=== PATIENT | male | born 1990 | race Caucasian/White ===

== ENCOUNTER 2024-01-06 08:47 | Outpatient (OUT) | payer OTHER, SELFPAY ==
[2024-01-06 09:25] LABS: Basophils Absolute Auto 0.2 10^3/uL (0.0-0.1); Basophils Percent Auto 1.8 % (0.2-2.0); Eosinophils Absolute Auto 0.5 10^3/uL (0.0-0.7); Eosinophils Percent Auto 5.4 % (0.9-7.0); Hematocrit 50.5 % (42.0-54.0); Hemoglobin 17.7 g/dL (14.0-18.0); Immature Granulocytes Abs Auto 0.04 10^3/uL (0.00-0.03); Immature Granulocytes Pct Auto 0.4 % (0.0-0.5); Lymphocytes Absolute Auto 2.1 10^3/uL (1.2-3.8); Lymphocytes Percent Auto 22.1 % (20.5-60.0); Mean Corpuscular Hemoglobin 28.1 pg (25.9-34.0); Mean Corpuscular Volume 80.3 fL (80.0-94.0); Mean Platelet Volume 8.6 fL (9.5-13.5); Monocytes Absolute Auto 0.5 10^3/uL (0.3-0.8); Monocytes Percent Auto 5.8 % (1.7-12.0); Neutrophils Percent Auto 64.5 % (43.0-75.0); Platelet Count 253 10^3/uL (150-450); Red Blood Count 6.29 10^6/uL (4.70-6.10); Red Cell Distribution Width 12.9 % (11.0-15.0); White Blood Count 9.3 10^3/uL (4.0-11.0)
[2024-01-06 10:07] LABS: Microalbum Creatinine Ratio Ur 14.6 mg/g (0.0-29.9); Microalbumin Urine Random <1.3 mg/dL (<=30.0)
[2024-01-06 11:20] LABS: Alanine Aminotransferase 43 U/L (16-63); Albumin Globulin Ratio 1.2; Albumin Level 4.2 g/dL (3.4-5.0); Alkaline Phosphatase 111 U/L (46-116); Anion Gap 14.2; Aspartate Amino Transferase 18 U/L (15-37); BUN Creatinine Ratio 14.6; Bilirubin Total 0.6 mg/dL (0.2-1.0); Calcium 9.3 mg/dL (8.5-10.1); Carbon Dioxide 27.9 mmol/L (21.0-32.0); Chloride 97 mmol/L (98-107); Chol HDL Ratio 7.8; Cholesterol 225 mg/dL (<=200); Estimated GFR (African America >60 (>=60); Estimated GFR (Non-African Ame >60 (>=60); Globulin 3.5 g/dL; Glucose 362 mg/dL (74-106); HDL Cholesterol 29 mg/dL (40-60); Potassium 4.1 mmol/L (3.5-5.1); Sodium 135 mmol/L (136-145); TSH W/ REFLEX FT4 2.932 uIU/mL (0.358-3.740); Total Protein 7.7 g/dL (6.4-8.2); Triglycerides 1183 mg/dL (<=150); VLDL CHOLESTEROL 236.6 mg/dL
[2024-01-06 11:23] LABS: Estimated Average Glucose 252 mg/dL; Glycohemoglobin A1C 10.4 % (4.5-6.2)
[2024-01-06 13:17] LABS: LDL Cholesterol Direct 72 mg/dL
[2024-01-07 06:09] LABS: Insulin 6.5 uIU/mL (2.6-24.9)
[2024-01-08 19:08] LABS: Testosterone 225 ng/dL (264-916)
== END 2024-01-06 08:48 | disposition home or self-care (01) ==
PROVIDERS: PCP Internal Medicine; Visit Provider Internal Medicine
DX: N52.8 Other male erectile dysfunction (principal); Z87.19 Personal history of other diseases of the digestive system; E08.9 Diabetes mellitus due to underlying condition without complications; Z79.4 Long term (current) use of insulin; E78.5 Hyperlipidemia, unspecified; F33.2 Major depressive disorder, recurrent severe without psychotic features
CPT/HCPCS: 36415; 80053; 80061; 82043; 82570; 83036; 83525; 83690; 83721; 84402; 84403; 84443; 85025

== ENCOUNTER 2024-03-19 05:36 | Emergency (ER) | payer SELFPAY ==
[2024-03-19 05:48] VITALS: BP 128/92; PULSE 104; TEMP 36.6; O2SAT 99; BMI 25.1
--- NOTE | 2024-03-19 06:09 | ED_ITS ---
HPI - Eye Problem General Chief complaint: Eye Problems Stated complaint: EYE Time Seen by Provider: 03/19/24 05:47 History of Present Illness HPI Narrative: 33-year-old male presents to the emergency department for left eye irritation. It started on March 17, 2 days ago. He gives no history of foreign body or foreign object or chemicals going into his eye. It is irritated in the left eye only and light seems to make it worse. No symptoms in the right eye. 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 Symptoms are continuous. He does not have a foreign body sensation. Related Data Allergies Allergy/AdvReac Type Severity Reaction Status Date / Time No Known Drug Allergies Allergy Verified 03/19/24 05:48 Review of Systems ROS Narrative A ten point review of systems is negative except as noted above. Exam Narrative Exam Narrative: Nurses note and vital signs reviewed and patient is not hypoxic. General: The patient appears well and in no apparent distress. Patient is resting comfortably on cart. She is wearing dark sunglasses. Skin: Warm, dry, no pallor noted. There is no rash noted. Head: Normocephalic, atraumatic Eye: Right conjunctiva appears normal. The left is injected. Lid eversion shows no foreign bodies and staining shows no corneal abrasion or foreign body. Extraocular movements are intact. Ears, Nose, Mouth, and Throat: oral mucosa is moist. Nares patent. Cardiovascular: Regular Rate and Rhythm Respiratory: Patient is in no distress, no accessory muscle use, lungs are clear to auscultation, no wheezing, rales or rhonchi Back: non-tender GI: Soft and nontender Musculoskeletal: No joint swelling Neurological: Awake and alert Psychiatric: Cooperative Constitutional Vital Signs, click to edit/add: Last Vital Signs Temp 97.9 F 03/19/24 05:48 Pulse 104 H 03/19/24 05:48 Resp 18 03/19/24 05:48 BP 128/92 H 03/19/24 05:48 Pulse Ox 99 03/19/24 05:48 O2 Del Method Room Air 03/19/24 05:48 Course Vital Signs Vital signs: Vital Signs Temperature 97.9 F 03/19/24 05:48 Pulse Rate 104 H 03/19/24 05:48 Respiratory Rate 18 03/19/24 05:48 Blood Pressure 128/92 H 03/19/24 05:48 Pulse Oximetry 99 03/19/24 05:48 Oxygen Delivery Method Room Air 03/19/24 05:48 Temperature 97.9 F 03/19/24 05:48 Pulse Rate 104 H 03/19/24 05:48 Respiratory Rate 18 03/19/24 05:48 Blood Pressure 128/92 H 03/19/24 05:48 Pulse Oximetry 99 03/19/24 05:48 Oxygen Delivery Method Room Air 03/19/24 05:48 MDM - Eye Problem MDM Narrative Medical decision making narrative: He has no evidence of foreign body or corneal abrasion. He is placed on Acular and Bleph-10. Treatment diagnosis and follow-up were discussed with the patient. Differential Diagnosis Differential diagnosis: Likely corneal abrasion, conjunctivitis, subconjunctival hemorrhage and other (Foreign body) Discharge Plan Discharge Stand Alone Forms: Portal Instructions Chief Complaint: Eye Problems Clinical Impression: Conjunctivitis Patient Disposition: Home, Self-Care Time of Disposition Decision: 06:07 Condition: Good Mode of Transportation: Private Vehicle Print Language: Spanish Instructions: Conjunctivitis (ED) Referrals: EDMOND HINSON [Physician] - 1 week Shaikh Hernandez MD [Primary Care Provider] - 1 week
[2024-03-19] MEDS: FLUORESCEIN SODIUM 1 MG STRIP OP (06:21)
== END 2024-03-19 06:36 | disposition home or self-care (01) ==
PROVIDERS: Emergency Provider Emergency Medicine; PCP Internal Medicine
DX: H10.9 Unspecified conjunctivitis (principal)
CPT/HCPCS: 99283

== ENCOUNTER 2024-07-20 18:01 | Emergency (ER) | payer SELFPAY ==
[2024-07-20 18:15] VITALS: BP 139/106; PULSE 101; TEMP 36.7; O2SAT 99; BMI 25.8
--- OUTSIDE RECORDS SUMMARY | 2024-07-20 18:19 | XMS_ITS | CCD ---
Author Organization [facility] Care Team Providers Care Licensed Practical Nurse Clinic Nurse Name Role Phone REQUEST, DR NONE LISTED Primary Care Unavaila ble PAY, DR QIU Admitting Unavailable PAY, DR QIU Attending Unavailable PAY, DR QIU Consulting Unavailable MALIKA, MANUEL Consulting Unavailable SHAIKH SCHRADER Attending Unavailable Results Test Name Value Interpretation Reference Range Facil ity XR LSPINE 2_3 VIEWSon 2022 XR LSPINE 2_3 VIEWS EXAM: XR LSPINE 2_3 VIEWS, XR TSPINE 2 VIEWS HISTORY: Pain. COMPARISON: Lumbar radiographs 04/16/2014. TECHNIQUE: 3 views lumbar spine, 3 views thoracic spine. FINDINGS: Thoracic and lumbar alignment is normal. There are small anterior osteophytes in the lower thoracic levels, disc height is maintained. Lumbar disc height is maintained at all levels. No significant facet degeneration. No pathologic calcifications. IMPRESSION: 1. Normal lumbar spine. 2. Minimal lower thoracic degenerative disc disease without acute bony abnormality. Electronically authenticated by: MANUEL DALY Date: 2022-10-20 06:48 Normal [facility] Encounters Encounter Date Encounter Type Care Provider Facility Start: 01-04-2024 End: 01-04-2024 ambulatory SHAIKH MACRINA Not Available Start: 10-20-2022 End: 10-20-[address] SUAREZ LISTED REQUEST Facility: Payers Date Payer Category Payer Private Health Insurance [id number] 1990 Unknown [id number] 1990 Unknown [id number] 1958 Self-pay [id number] Summary Purpose Family History No Family History Records FoundNo Family History Records Found Advance Directives No Advanced Directives Records FoundNo Advanced Directives Records Found Additional Source Comments (unrecognized sect ion and content) No Status Records FoundNo Status Records Found INFORMATION SOURCE (unrecogn ized section and content) DATE CREATED AUTHOR 10/20/2022 [facility] DATE CREATED AUTHOR AUTHOR'S ORGANIZ ATION 01/05/2024 [facility] FOR RECORDS PERTAINING TO PATIENTS WHO ARE OR HAVE BEEN ENROLLED IN A CHEMICAL DEPENDENCY/SUBSTANCEABUSE PROGRAM, SOME INFORMATION MAY BE OMITTED. This clinical summary was aggregated from multiple sources. Caution should be exercised in using it in the provision of clinical care. This summary normalizes information from multiple sources, and as a consequence, information in this document may materially change the coding, format and clinical context of patient data. In addition, data may be omitted in some cases. CLINICAL DECISIONS SHOULD BE BASED ON THE PRIMARY CLINICAL RECORDS. [facility] [employer] provides no warranty or guarantee of the accuracy or completeness of information in this document.
--- NOTE | 2024-07-20 18:20 | XR_ITS ---
The [place] [id number] Patient Name: ZAINAB RAM MRN: [id number] date: 1990 Sex: M Assigned Patient Location: ED.MAIN Current Patient Location: Accession/Order Number: [id number] Exam Date: 07/20/2024 18:35 Report Date: 07/20/2024 19:52 At the request of: TIFFANIE KENNEDY Procedure: XR shoulder LT min 2V EXAM: XR shoulder LT min 2V TECHNIQUE: Internal rotation, external rotation and scapular Y views of the left shoulder HISTORY: c/o pain COMPARISON: None. FINDINGS: No fracture or dislocation. Soft tissues are unremarkable. No arthritic changes. XR/XR shoulder LT min 2V IMPRESSION: No acute findings Electronically authenticated by: LEBRON COLON Date: 07/20/2024 19:52
--- NOTE | 2024-07-20 18:56 | ED_ITS ---
HPI HPI - Extremity Injury (Upper) General Chief Complaint: Extremity Injury, Upper Stated Complaint: Upper Pain Time Seen by Provider: 07/20/24 18:18 Source: patient Mode of arrival: walk-in Limitations: no limitations History of Present Illness HPI narrative: Patient is a 33-year-old male who presents to the emergency department for intermittent pain in the posterior left shoulder with radiation into the left glenohumeral joint and left arm. He states 2 years ago he was lifting 70 pound bags when he felt a pull in the left shoulder and immediately developed pain and burning down the left arm. He never had it evaluated. He states intermittently he has an exacerbation of the symptoms. He denies any new mechanism of injury or trauma. He has occasional tingling to the left fifth finger. He is right- hand dominant. Related Data Previous Rx's ?Medication ?Instructions ?Recorded ketorolac 10 mg tablet 10 mg PO TID PRN pain #10 tabs 07/20/24 methocarbamol 750 mg tablet 750 mg PO TID PRN pain #20 tabs 07/20/24 methylprednisolone 4 mg tablets in See Rx Instructions .Route 07/20/24 a dose pack (Medrol (Matthew)) .COMPLEX #21 ea Allergies Allergy/AdvReac Type Severity Reaction Status Date / Time No Known Drug Allergies Allergy Verified 07/20/24 18:19 Opioid HPI Opioid Management Most Recent Pain and Opioid Data: Last Pain Scale 7 07/20/24 18:51 Last ED Pain Assessment 07/20/24 18:51 Review of Systems ROS Constitutional Denies: fever or chills Ears, nose, mouth, and throat Denies: throat pain or nasal congestion Respiratory Denies: shortness of breath Gastrointestinal Denies: nausea or vomiting Musculoskeletal Reports: extremity pain and joint pain; Denies: back pain or neck pain Integumentary/Breast Denies: rash Neurological Reports: numbness in extremities; Denies: weakness in extremities Hematologic/Lymphatic Denies: easy bruising or easy bleeding PFSH PFSH Social History Little interest or pleasure in doing things: not at all Feeling down, depressed, or hopeless: not at all Exam Narrative Exam Narrative: Gen.: Awake, alert, in no distress Head: Normocephalic, atraumatic ENT: Moist mucous membranes Respiratory: No respiratory distress Extremities: Pain with abduction of the left shoulder, diffuse tenderness of the left posterior scapula. No obvious deformity or sulcus sign. No bony tenderness of the left proximal humerus or glenohumeral joint. 2+ left radial pulse. 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 Psych: Normal mood and affect Neuro: No focal neuro deficit Skin: Warm, dry, intact Constitutional Vital Signs, click to edit/add: Last Vital Signs Temp 98.1 F 07/20/24 18:15 Pulse 101 H 07/20/24 18:15 Resp 20 07/20/24 18:15 BP 139/106 H 07/20/24 18:15 Pulse Ox 99 07/20/24 18:15 O2 Del Method Room Air 07/20/24 18:15 Course Vital Signs Vital signs: Vital Signs Temperature 98.1 F 07/20/24 18:15 Pulse Rate 101 H 07/20/24 18:15 Respiratory Rate 20 07/20/24 18:15 Blood Pressure 139/106 H 07/20/24 18:15 Pulse Oximetry 99 07/20/24 18:15 Oxygen Delivery Method Room Air 07/20/24 18:15 Temperature 98.1 F 07/20/24 18:15 Pulse Rate 101 H 07/20/24 18:15 Respiratory Rate 20 07/20/24 18:15 Blood Pressure 139/106 H 07/20/24 18:15 Pulse Oximetry 99 07/20/24 18:15 Oxygen Delivery Method Room Air 07/20/24 18:15 MDM - Extremity Injury (Upper) MDM Narrative Medical decision making narrative: X-rays of the shoulder with no evidence of fracture or dislocation. Patient placed in a sling for comfort, encouraged to remove the sling often to stretch. Follow-up with orthopedics for suspected rotator cuff injury. NSAIDs, muscle relaxants and steroids given for home. Work note provided. Return to the ER if symptoms change or worsen SUPERVISED APC VISIT, PHYSICIAN ATTESTATION: Based on the medical record the care appears appropriate. ? Medical Records Attestation: I reviewed the patient's medical records. Discharge Plan Discharge Chief Complaint: Extremity Injury, Upper Clinical Impression: Acute pain of left shoulder Patient Disposition: Home, Self-Care Time of Disposition Decision: 19:00 Condition: Good Prescriptions / Home Meds: New ketorolac 10 mg tablet 10 mg PO TID PRN (Reason: pain) Qty: 10 0RF methocarbamol 750 mg tablet 750 mg PO TID PRN (Reason: pain) Qty: 20 0RF methylprednisolone [Medrol (Matthew)] 4 mg tablets,dose pack See Rx Instructions .ROUTE .COMPLEX Qty: 21 0RF Rx Instructions: Taper as directed Print Language: Singaporean Instructions: Shoulder Pain (ED) Referrals: Physician,Non-Staff, MD [Primary Care Provider] - 1 week Jj Ambrocio MD [Physician] - As needed
[2024-07-20] MEDS: HYDROCODONE/ACET 5-325 MG TABLET 1 TAB PO (19:11)
[2024-07-20] MEDS: KETOROLAC TROMETHAMINE 10 MG TABLET PO (19:11)
== END 2024-07-20 19:16 | disposition home or self-care (01) ==
PROVIDERS: Emergency Provider Emergency Medicine
DX: M25.512 Pain in left shoulder (principal)
CPT/HCPCS: 73030; 99283

== ENCOUNTER 2024-10-22 18:48 | Emergency (ER) | payer SELFPAY ==
[2024-10-22 19:03] VITALS: BP 128/81; PULSE 115; TEMP 38.2; O2SAT 98; BMI 26.5
--- NOTE | 2024-10-22 19:21 | XR_ITS ---
The [address] [address] Patient Name: ZAINAB RAM MRN: [id number] date: 1990 Sex: M Assigned Patient Location: ER Current Patient Location: ED.MAIN Accession/Order Number: [id number] Exam Date: 10/22/2024 19:32 Report Date: 10/22/2024 20:06 At the request of: ALEXEI MONACO Procedure: XR chest 2V EXAM: XR chest 2V HISTORY: cough COMPARISON: 08/26/2016 TECHNIQUE: Upright PA and lateral chest x-ray FINDINGS: The heart is not enlarged and the vasculature is not distended. No acute infiltrate, effusion or pneumothorax is identified. The osseous structures are grossly intact. XR/XR chest 2V IMPRESSION: No acute infiltrate or evidence of cardiac decompensation. The overall appearance of the chest is essentially unchanged. Electronically authenticated by: JENY PANIAGUA Date: 10/22/2024 20:06
[2024-10-22] MEDS: ACETAMINOPHEN 500 MG TABLET 1000 MG PO (19:27)
[2024-10-22 19:36] VITALS: O2SAT 98
[2024-10-22 19:53] LABS: Influenza Virus A Antigen Positive; Influenza Virus B Antigen Negative; Internal Control Within Normal Limits
--- NOTE | 2024-10-22 20:01 | ED.FEVER1 ---
HPI - Fever General Chief Complaint: Fever Stated Complaint: body aches cough Time Seen by Provider: 10/22/24 19:21 Source: patient Mode of arrival: walk-in Limitations: no limitations History of Present Illness HPI Narrative: 33-year-old male presents here chief complaint fevers cough body aches and chills. He has had the symptoms for the last 24 to 48 hours. History of diabetes he does not appear toxic or lethargic.. Present with low-grade fever. He has not taken anything. Lung sounds are clear throughout he is not hypoxic Related Data Home Medications ?Medication ?Instructions ?Recorded ?Confirmed atorvastatin 40 mg tablet 40 mg PO DAILY 10/22/24 10/22/24 insulin human U-100 NPH-regulr 25 unit subcut BID 10/22/24 10/22/24 70-30 mix 100 unit/mL subcutaneous susp (Novolin 70/30 U-100 Insulin) Previous Rx's ?Medication ?Instructions ?Recorded ketorolac 10 mg tablet 10 mg PO TID PRN pain #10 tabs 07/20/24 methocarbamol 750 mg tablet 750 mg PO TID PRN pain #20 tabs 07/20/24 methylprednisolone 4 mg tablets in See Rx Instructions .Route 07/20/24 a dose pack (Medrol (Matthew)) .COMPLEX #21 ea Allergies Allergy/AdvReac Type Severity Reaction Status Date / Time No Known Drug Allergies Allergy Verified 10/22/24 19:07 Review of Systems ROS Narrative All Systems are negative except as noted/marked.All systems reviewed and otherwise negative [facility] Medical History (Updated 10/22/24 @ 19:58 by Marilee Arroyo) High cholesterol ?E78.00 - Pure hypercholesterolemia, unspecified (ICD-10) Social History Little interest or pleasure in doing things: not at all Feeling down, depressed, or hopeless: not at all Exam Narrative Exam Narrative: Nurses note and vital signs reviewed and patient is not hypoxic. General: The patient appears well and in no apparent distress. Patient is resting comfortably on cart. Skin: Warm, dry, no pallor noted. There is no rash noted. Head: Normocephalic, atraumatic Eye: Normal conjunctiva, no drainage, EOMI. PERRL Ears, Nose, Mouth, and Throat: oral mucosa is moist. Nares patent. Mouth without vesicles. Ear canals patent. Tm's without Erythema Cardiovascular: Regular Rate and Rhythm Respiratory: Patient is in no distress, no accessory muscle use, lungs are clear to auscultation, no wheezing, rales or rhonchi Back: non-tender, no CVA tenderness bilaterally to percussion. GI: Normal bowel sounds, no tenderness to palpation, no masses appreciated. No rebound, guarding, or rigidity noted. Musculoskeletal: The patient has no evidence of calf tenderness, no pitting edema, symmetrical pulses noted bilaterally Neurological: A&O x4, normal speech Psychiatric: Cooperative Constitutional Vital Signs, click to edit/add: Last Vital Signs Temp 100.8 F H 10/22/24 19:03 Pulse 115 H 10/22/24 19:03 Resp 16 10/22/24 19:03 BP 128/81 10/22/24 19:03 Pulse Ox 98 10/22/24 19:36 O2 Del Method Room Air 10/22/24 19:36 Course Vital Signs Vital signs: Vital Signs Temperature 100.8 F H 10/22/24 19:03 Pulse Rate 115 H 10/22/24 19:03 Respiratory Rate 16 10/22/24 19:03 Blood Pressure 128/81 10/22/24 19:03 Pulse Oximetry 98 10/22/24 19:03 Oxygen Delivery Method Room Air 10/22/24 19:03 Temperature 100.8 F H 10/22/24 19:03 Pulse Rate 115 H 10/22/24 19:03 Respiratory Rate 16 10/22/24 19:03 Blood Pressure 128/81 10/22/24 19:03 Pulse Oximetry 98 10/22/24 19:36 Oxygen Delivery Method Room Air 10/22/24 19:36 MDM - Fever MDM Narrative Medical decision making narrative: Patient present here chief complaint of cough congestion and fever. Body aches and chills. Patient low-grade fever medicated with Tylenol. Flu Jeri swab came back for influenza A. Chest x-ray showed no acute infiltrate. Patient was discharged home with a influenza instructions told to continue Tylenol Motrin. He was also given a work note. No questions at discharge. Differential Diagnosis Differential diagnosis: Likely viral infection, influenza and other Medical Records Attestation: I reviewed the patient's medical records. Lab Data Attestation: I reviewed the patient's lab results. Labs: Lab Results 10/22/24 Range/Units 19:30 Influenza Type A Ag Positive A Influenza Type B Ag Negative Imaging Data Chest x-ray: Radiologist's impression: ITS Impressions Chest X-Ray 10/22/24 19:21 IMPRESSION: No acute infiltrate or evidence of cardiac decompensation. The overall appearance of the chest is essentially unchanged. Electronically authenticated by: JENY PANIAGUA Date: 10/22/2024 20:06 Discharge Plan Discharge Chief Complaint: Fever Clinical Impression: Influenza Patient Disposition: Home, Self-Care Time of Disposition Decision: 19:58 Condition: Good Prescriptions / Home Meds: No Action ketorolac 10 mg tablet 10 mg PO TID PRN (Reason: pain) Qty: 10 0RF methocarbamol 750 mg tablet 750 mg PO TID PRN (Reason: pain) Qty: 20 0RF methylprednisolone [Medrol (Matthew)] 4 mg tablets,dose pack See Rx Instructions .ROUTE .COMPLEX Qty: 21 0RF Rx Instructions: Taper as directed atorvastatin 40 mg tablet 40 mg PO DAILY Novolin 70/30 U-100 Insulin 100 unit/mL (70-30) suspension 25 unit SUBCUT BID Print Language: New Zealander Instructions: Influenza (ED) Referrals: Physician,Non-Staff, MD [Primary Care Provider] - 1 week Discharge Date/Time: 10/22/24 20:10
== END 2024-10-22 20:10 | disposition home or self-care (01) ==
PROVIDERS: Physician Assistant; Emergency Provider Emergency Medicine
DX: J10.1 Influenza due to other identified influenza virus with other respiratory manifestations (principal); E11.9 Type 2 diabetes mellitus without complications; Z79.4 Long term (current) use of insulin; R50.9 Fever, unspecified
CPT/HCPCS: 71046; 87804; 99284

== ENCOUNTER 2025-05-24 07:01 | Emergency (ER) | payer SELFPAY ==
[2025-05-24 07:05] VITALS: BP 124/85; PULSE 109; TEMP 36.3; O2SAT 98; BMI 25.8
--- NOTE | 2025-05-24 07:14 | CT_ITS ---
The [address] [address] Patient Name: ZAINAB RAM MRN: [id number] date: 1990 Sex: M Assigned Patient Location: ER Current Patient Location: ER Accession/Order Number: [id number] Exam Date: 05/24/2025 07:57 Report Date: 05/24/2025 08:03 At the request of: TIFFANIE KENNEDY MD Procedure: CT head/brain wo con CT BRAIN WITHOUT CONTRAST: CLINICAL HISTORY: Patient fell and hit the back of the head COMPARISON: None TECHNIQUE: Contiguous axial unenhanced images were obtained through the brain. This CT exam was performed using one or more following dose reduction techniques: Automated exposure control, adjustment of the mA and/or kV according to patient size, or use of iterative reconstruction technique. FINDINGS: The ventricles are normal in size and position. There are no areas of abnormal attenuation. There is no hemorrhage, mass effect or extra-axial collections. The calvarium is intact. The imaged paranasal sinuses are clear. CT/CT head/brain wo con IMPRESSION: NO ACUTE INTRACRANIAL TRAUMA. Impression dictated by: Temi Zapien M.D. 05/24/2025 8:03 AM Dictation Location: [place] [address] Electronically authenticated by: [id number] Y Date: 05/24/2025 08:03
--- NOTE | 2025-05-24 07:15 | ED_ITS ---
HPI HPI - General Adult General Chief complaint: Head Injury Stated complaint: FALL THIS AM; HEAD INJURY Time Seen by Provider: 05/24/25 07:04 Source: patient Mode of arrival: walk-in History of Present Illness HPI narrative: 34-year-old man presents for head injury. It happened about 1:00 this morning and he hit his head on a supple for in his home. When he got up to go to work at about 6 AM he felt dizzy and has some pain in the back of his head and a coworker suggested that he come and get checked. There was no other injury, no neck pain. No vomiting. Related Data Home Medications ?Medication ?Instructions ?Recorded ?Confirmed insulin human U-100 NPH-regulr 35 unit subcut BID 03/1105/24/25 70-30 mix 100 unit/mL subcutaneous susp (Novolin 70/30 U-100 Insulin) Allergies Allergy/AdvReac Type Severity Reaction Status Date / Time No Known Drug Allergies Allergy Verified 05/24/25 07:05 Opioid HPI Opioid Management Most Recent Opioid Data: Last Pain Scale 7 07/20/24, 18:51 Review of Systems ROS Narrative A ten point review of systems is negative except as noted above. [facility] Medical History (Updated 05/24/25 @ 08:08 by Felipe Waite MD) High cholesterol ?E78.00 - Pure hypercholesterolemia, unspecified (ICD-10) Social History Little interest or pleasure in doing things: not at all Feeling down, depressed, or hopeless: not at all Exam Narrative Exam Narrative: Nurses note and vital signs reviewed and patient is not hypoxic. General: The patient appears well and in no apparent distress. Patient is resting comfortably on cart. Skin: Warm, dry, no pallor noted. There is no rash noted. Head: Normocephalic, posterior scalp shows a small abrasion. No hematoma or laceration. Cervical spine nontender. Eye: Normal conjunctiva, no drainage Ears, Nose, Mouth, and Throat: oral mucosa is moist. Nares patent. Cardiovascular: Regular Rate and Rhythm Respiratory: Patient is in no distress, no accessory muscle use, lungs are clear to auscultation, no wheezing, rales or rhonchi Back: non-tender, no CVA tenderness bilaterally to percussion. GI: Soft and nontender Musculoskeletal: All joints have full range of motion Neurological: A&O, normal speech Psychiatric: Cooperative Constitutional Vital Signs, click to edit/add: Last Vital Signs Temp 97.3 F L 05/24/25 07:05 Pulse 109 H 05/24/25 07:05 Resp 16 05/24/25 07:05 BP 124/85 05/24/25 07:05 Pulse Ox 98 05/24/25 07:05 O2 Del Method Room Air 05/24/25 07:05 Course Vital Signs Vital signs: Vital Signs Temperature 97.3 F L 05/24/25 07:05 Pulse Rate 109 H 05/24/25 07:05 Respiratory Rate 16 05/24/25 07:05 Blood Pressure 124/85 05/24/25 07:05 Pulse Oximetry 98 05/24/25 07:05 Oxygen Delivery Method Room Air 05/24/25 07:05 Temperature 97.3 F L 05/24/25 07:05 Pulse Rate 109 H 05/24/25 07:05 Respiratory Rate 16 05/24/25 07:05 Blood Pressure 124/85 05/24/25 07:05 Pulse Oximetry 98 05/24/25 07:05 Oxygen Delivery Method Room Air 05/24/25 07:05 Medical Decision Making MDM Narrative Medical decision making narrative: CT per radiologist shows no acute findings and he was discharged home. Tylenol was recommended and he was given a work note. Treatment diagnosis and follow-up were discussed with the patient. Differential Diagnosis Differential Diagnosis: Head injury, intracranial hemorrhage, skull fracture Imaging Data CT scan - head: Radiologist's impression: ITS Impressions Head CT 05/24/25 07:14 IMPRESSION: NO ACUTE INTRACRANIAL TRAUMA. Impression dictated by: Temi Zapien M.D. 05/24/2025 8:03 AM Dictation Location: [place] [address] Electronically authenticated by: [id number] Y Date: 05/24/2025 08:03 Discharge Plan Discharge Chief Complaint: Head Injury Clinical Impression: Closed head injury Patient Disposition: Home, Self-Care Time of Disposition Decision: 08:08 Condition: Good Mode of Transportation: Private Vehicle Prescriptions / Home Meds: No Action Novolin 70/30 U-100 Insulin 100 unit/mL (70-30) suspension 35 unit SUBCUT BID Print Language: Urdu Instructions: Head Injury (ED) Referrals: Physician,Non-Staff, MD [Primary Care Provider] - 1 week
--- OUTSIDE RECORDS SUMMARY | 2025-05-24 07:15 | XMS_ITS | CCD ---
Author Organization [place] [facility] Care Team Providers Care Configurator Name Role Phone REQUEST, DR NONE LISTED [...] by: MANUEL DALY Date: 2022-10-20 06:48 Normal [facility] Encounters Encounter Date Encounter Type Care Provider Facility Start: 01-04-2024 End: 01-04-2024 ambulatory SHAIKH MACRINA Not Available Start: 10-20-2022 End: 10-20-[address] SUAREZ LISTED REQUEST Facility: Payers Date Payer Category Payer Private Health Insurance [id number] 1990 Unknown [id number] 1990 Unknown [id number] 1958 Self-pay [id number] Summary Purpose Family History No Family History Records FoundNo Family History Records Found Advance Directives No Advanced Directives Records FoundNo Advanced Directives Records Found Additional Source Comments (unrecognized sect ion and content) No Status Records FoundNo Status Records Found INFORMATION SOURCE (unrecogn ized section and content) DATE CREATED AUTHOR 10/20/2022 [facility] DATE CREATED AUTHOR AUTHOR'S ORGANIZ ATION 01/05/2024 [facility] FOR RECORDS PERTAINING TO PATIENTS WHO ARE [...] BE BASED ON THE PRIMARY CLINICAL RECORDS. [facility] [employer] provides no warranty or guarantee of the accuracy or completeness of information in this document.
== END 2025-05-24 08:14 | disposition home or self-care (01) ==
PROVIDERS: Emergency Provider Emergency Medicine
DX: S06.0X0A Concussion without loss of consciousness, initial encounter (principal); W01.198A Fall on same level from slipping, tripping and stumbling with subsequent striking against other object, initial encounter; R51.9 Headache, unspecified; R42 Dizziness and giddiness
CPT/HCPCS: 70450; 99284

== ENCOUNTER 2025-05-31 05:53 | Emergency (ER) | payer SELFPAY ==
[2025-05-31 05:56] VITALS: BP 167/110; PULSE 105; TEMP 36.8; O2SAT 97; BMI 25.1
--- OUTSIDE RECORDS SUMMARY | 2025-05-31 06:03 | XMS_ITS | CCD ---
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 Role Phone REQUEST, DR NONE LISTED [...] by: MANUEL DALY Date: 2022-10-20 06:48 Normal [facility] Encounters Encounter Date Encounter Type Care Provider Facility Start: 01-04-2024 End: 01-04-2024 ambulatory SHAIKH MACRINA Not Available Start: 10-20-2022 End: 10-20-[address] SUAREZ LISTED REQUEST Facility: Payers Date Payer Category Payer Private Health Insurance [id number] 1990 Unknown [id number] 1990 Unknown [id number] 1958 Self-pay [id number] Summary Purpose Family History No Family History Records FoundNo Family History Records Found Advance Directives No Advanced Directives Records FoundNo Advanced Directives Records Found Additional Source Comments (unrecognized sect ion and content) No Status Records FoundNo Status Records Found INFORMATION SOURCE (unrecogn ized section and content) DATE CREATED AUTHOR 10/20/2022 [facility] DATE CREATED AUTHOR AUTHOR'S ORGANIZ ATION 01/05/2024 [facility] FOR RECORDS PERTAINING TO PATIENTS WHO [...] BE BASED ON THE PRIMARY CLINICAL RECORDS. [facility] [employer] provides no warranty or guarantee of the accuracy or completeness of information in this document.
--- NOTE | 2025-05-31 06:49 | ED_ITS ---
HPI HPI - Fall General Chief Complaint: Fall Stated Complaint: FALL Time Seen by Provider: 05/31/25 06:49 Source: patient Mode of arrival: walk-in History of Present Illness HPI Narrative: injured his sacral area 4 days ago. States his pet is why he fell and bounced down about 2-3 stairs. Pain only in the sacral coccyx area. has been working but could not do much because of the pain. Hurts to bend over and now comes in. No pain of his lower back or lower extremities. No weakness or numbness Related Data Home Medications ?Medication ?Instructions ?Recorded ?Confirmed insulin human U-100 NPH-regulr 35 unit subcut BID 03/1105/24/25 70-30 mix 100 unit/mL subcutaneous susp (Novolin 70/30 U-100 Insulin) Allergies Allergy/AdvReac Type Severity Reaction Status Date / Time No Known Drug Allergies Allergy Verified 05/31/25 05:59 Opioid HPI Opioid Management Most Recent Pain and Opioid Data: 2 Last Pain Scale 4 Today, 05:56 Review of Systems 2 ROS0 Status of ROS 10 or more systems reviewed and unremark able except as noted in history and below [facility] Medical History (Updated 05/31/25 @ 06:53 by Jose A Wayne MD) High cholesterol ?E78.00 - Pure hypercholesterolemia, unspecified (ICD-10) Social History Little interest or pleasure in doing things: not at all Feeling down, depressed, or hopeless: not at all Exam Constitutional Vital Signs, click to edit/add: Last Vital Signs Temp 98.2 F 05/31/25 05:56 Pulse 105 H 05/31/25 05:56 Resp 16 05/31/25 05:56 BP 167/110 H 05/31/25 05:56 Pulse Ox 97 05/31/25 05:56 O2 Del Method Room Air 05/31/25 05:56 Common normals: no apparent distress, average body habitus, oriented x3, no limitations, healthy appearing, alert and well nourished [facility] Common normals: normocephalic and head/scalp atraumatic Respiratory Common normals: normal respiratory effort, no retractions, no use of accessory muscles and clear to auscultation bilaterally Cardio Common normals: regular rate, regular rhythm, S1 normal heart sound and S2 normal heart sound GI Common normals: Normal to inspection, nondistended, normoactive bowel sounds present, soft to palpation and non-tender Back & Pelvis Back image (male): 2 1. mod tenderness Extremity Common normals: normal to inspection and full ROM Neuro Common normals: oriented x3, CN's II-XII intact bilaterally, moves all extremities and no focal motor deficits Psych Appearance: grossly normal Course Vital Signs Vital signs: Vital Signs Temperature 98.2 F 05/31/25 05:56 Pulse Rate 105 H 05/31/25 05:56 Respiratory Rate 16 05/31/25 05:56 Blood Pressure 167/110 H 05/31/25 05:56 Pulse Oximetry 97 05/31/25 05:56 Oxygen Delivery Method Room Air 05/31/25 05:56 Temperature 98.2 F 05/31/25 05:56 Pulse Rate 105 H 05/31/25 05:56 Respiratory Rate 16 05/31/25 05:56 Blood Pressure 167/110 H 05/31/25 05:56 Pulse Oximetry 97 05/31/25 05:56 Oxygen Delivery Method Room Air 05/31/25 05:56 MDM - Fall MDM Narrative Medical decision making narrative: fell 4 days ago onto his sacral coccyx. continues to have pain. xrays ordered and reading pending. Care transferred at change of shift Discharge Plan Discharge Patient Disposition: Still a Patient
--- NOTE | 2025-05-31 07:54 | ED.GENADUL1 ---
HPI HPI - General Adult General Chief complaint: Fall Stated complaint: FALL Time Seen by Provider: 05/31/25 06:49 Source: patient Mode of arrival: walk-in History of Present Illness HPI narrative: 34-year-old male presented to the emergency department and was initially seen by Dr. Wayne and signed out to me after discussing the case with him thoroughly. Please see his full history and physical exam. Related Data Home Medications ?Medication ?Instructions ?Recorded ?Confirmed insulin human U-100 NPH-regulr 35 unit subcut BID 10/22/24 05/24/25 70-30 mix 100 unit/mL subcutaneous susp (Novolin 70/30 U-100 Insulin) Allergies Allergy/AdvReac Type Severity Reaction Status Date / Time No Known Drug Allergies Allergy Verified 05/31/25 05:59 Opioid HPI Opioid Management Most Recent Opioid Data: Last Pain Scale 4 Today, 05:56 [facility] Medical History (Updated 05/31/25 @ 06:53 by Jose A Wayne MD) High cholesterol ?E78.00 - Pure hypercholesterolemia, unspecified (ICD-10) Social History Little interest or pleasure in doing things: not at all Feeling down, depressed, or hopeless: not at all Exam Constitutional Vital Signs, click to edit/add: Last Vital Signs Temp 98.2 F 05/31/25 05:56 Pulse 105 H 05/31/25 05:56 Resp 16 05/31/25 05:56 BP 167/110 H 05/31/25 05:56 Pulse Ox 97 05/31/25 05:56 O2 Del Method Room Air 05/31/25 05:56 Course Vital Signs Vital signs: Vital Signs Temperature 98.2 F 05/31/25 05:56 Pulse Rate 105 H 05/31/25 05:56 Respiratory Rate 16 05/31/25 05:56 Blood Pressure 167/110 H 05/31/25 05:56 Pulse Oximetry 97 05/31/25 05:56 Oxygen Delivery Method Room Air 05/31/25 05:56 Temperature 98.2 F 05/31/25 05:56 Pulse Rate 105 H 05/31/25 05:56 Respiratory Rate 16 05/31/25 05:56 Blood Pressure 167/110 H 05/31/25 05:56 Pulse Oximetry 97 05/31/25 05:56 Oxygen Delivery Method Room Air 05/31/25 05:56 Medical Decision Making MDM Narrative Medical decision making narrative: Sacral x-rays are negative and the patient is discharged home. He was recommended ice and Motrin. Treatment diagnosis and follow-up were discussed with the patient. Differential Diagnosis Differential Diagnosis: Contusion, fracture Imaging Data Sacrum and coccyx x-ray: Radiologist's impression: No evidence of acute pathology Discharge Plan Discharge Chief Complaint: Fall Clinical Impression: Contusion of sacral region Patient Disposition: Home, Self-Care Time of Disposition Decision: 07:54 Condition: Good Mode of Transportation: Private Vehicle Prescriptions / Home Meds: No Action Novolin 70/30 U-100 Insulin 100 unit/mL (70-30) suspension 35 unit SUBCUT BID Print Language: [place] Instructions: Contusion in Adults (ED) Referrals: Physician,Non-Staff, MD [Primary Care Provider] - 1 week
== END 2025-05-31 08:17 | disposition home or self-care (01) ==
PROVIDERS: Emergency Provider Emergency Medicine
DX: S30.0XXA Contusion of lower back and pelvis, initial encounter (principal); W10.9XXA Fall (on) (from) unspecified stairs and steps, initial encounter; M53.3 Sacrococcygeal disorders, not elsewhere classified
CPT/HCPCS: 72220; 99283